=== PATIENT | male | born 1955 | race Caucasian/White ===

== ENCOUNTER 2018-07-31 14:14 | Emergency (ER) | payer OTHER ==
[~2018-07-31] VITALS: Ht 175.3 cm; Wt 82.0 kg
[~2018-07-31 14:14] MED LIST: MEDDOSEPAK PO; ULTRAM50 M1 PO
[2018-07-31] MEDS ORDERED: PRAVASTATIN20 MG PO (14:36)
[2018-07-31] MEDS ORDERED: ASPIRIN81 MG PO (14:36)
[2018-07-31] MEDS ORDERED: TRAMADOL HYDROC50 MG PO (15:04)
[2018-07-31] MEDS ORDERED: NAPROSYN500 MG PO (15:04)
[2018-07-31 15:10] VITALS: BP 139/89
== END 2018-07-31 15:10 | disposition home or self-care (01) | DRG 563 ==
LOC: ED 14:14
DX: S29.011A Strain of muscle and tendon of front wall of thorax, initial encounter (principal); E78.00 Pure hypercholesterolemia, unspecified; F17.210 Nicotine dependence, cigarettes, uncomplicated; X50.0XXA Overexertion from strenuous movement or load, initial encounter; Y93.89 Activity, other specified; Y92.009 Unspecified place in unspecified non-institutional (private) residence as the place of occurrence of the external cause

== ENCOUNTER 2020-03-14 12:23 | Emergency (ER) | payer OTHER ==
[~2020-03-14] VITALS: Ht 175.3 cm; Wt 82.0 kg
[~2020-03-14 12:23] MED LIST changes: +ASPIRIN81 MG PO; +NAPROSYN500 MG PO; +PRAVASTATIN20 MG PO; +TRAMADOL HYDROC50 MG PO
[2020-03-14] MEDS ORDERED: KEFLEX500 M1 PO (13:15)
[2020-03-14 13:24] VITALS: BP 133/79
== END 2020-03-14 13:23 | disposition home or self-care (01) | DRG 605 ==
LOC: ED 12:23
PROC: 0HQGXZZ Repair Left Hand Skin, External Approach (ICD-10-PCS; principal; 2020-03-14)
DX: S61.412A Laceration without foreign body of left hand, initial encounter (principal); F17.210 Nicotine dependence, cigarettes, uncomplicated; W26.0XXA Contact with knife, initial encounter; Y93.H2 Activity, gardening and landscaping; Y92.007 Garden or yard of unspecified non-institutional (private) residence as the place of occurrence of the external cause

== ENCOUNTER 2020-11-23 | Emergency (ER) | payer OTHER ==
[~2020-11-23] MED LIST changes: +KEFLEX500 M1 PO
[2020-11-23] MEDS ORDERED: TRAMADOL HYDROC50 M1 PO (15:58)
[2020-11-23] MEDS ORDERED: KEFLEX500 M1 PO (15:58)
== END 2020-11-23 15:50 | disposition home or self-care (01) | DRG 603 ==
DX: L03.113 Cellulitis of right upper limb (principal); E78.00 Pure hypercholesterolemia, unspecified; F17.210 Nicotine dependence, cigarettes, uncomplicated

== ENCOUNTER 2024-06-28 11:03 | Emergency (ER) | payer MEDICARE ==
[2024-06-28] VITALS (8 sets, daily range): BP systolic 107–128; BP diastolic 66–77
[~2024-06-28] VITALS: Ht 175.3 cm; Wt 81.6 kg
[~2024-06-28 11:03] MED LIST changes: +AMOX/K CLAV875 M1 PO; +ASPIRIN ADULT L81 M2 PO; +ATORVASTATIN CA20 MG PO; +BLOOD PRESSURE TOP; +CELEBREX200 MG PO; +COLCHICINE0.6 M2 PO; +LISINOPRIL2.5 MG PO; +MELOXICAM7.5 MG PO; +NEXIUM 24HR20 MG PO; +OMEPRAZOLE20 MG PO; +PEPCID20 MG PO; +PREDNISONE10 MG PO; +TERBINAFINE HY250 MG PO; +TRAMADOL HYDROC50 M1 PO; +ZYRTEC10 MG PO
[2024-06-28] MEDS ORDERED: ONDANSETRON HCl 4 MG/2 ML SDV IV ONE (11:45)
[2024-06-28] MEDS ORDERED: MORPHINE SULFATE 4 MG/ML VIAL IV ONE ×2 (11:45→12:55)
[2024-06-28 13:01] LABS: BASO% 0.4 % (0-3); EOS% 0.1 % (0-8); HEMATOCRIT 40.4 % (39.0-50.0); HEMOGLOBIN 13.4 g/dl (14.0-18.0); IMMATURE GRANULOCYTES 0.2 % (0.0-5.0); LYMPH% 9.3 % (15-41); MEAN CELL VOLUME 95.5 fL CALC (80.0-100.0); MEAN CORPUSCULAR HGB 31.7 pG CALC (26.0-32.0); MEAN CORPUSCULAR HGB CONC 33.2 g/dL CAL (32.0-36.0); NEUT# 7.72 thou/uL (1.82-7.42); RED BLOOD COUNT 4.23 mill/uL (4.70-6.10); RED CELL DISTRI WIDTH 13.7 % (11.5-15.5)
[2024-06-28 13:11] LABS: ALBUMIN 3.8 g/dL (3.2-5.0); BILIRUBIN, TOTAL 0.4 mg/dL (0.2-1.3); CREATININE 1.1 mg/dL (0.7-1.3); POTASSIUM 4.1 mmol/l (3.5-5.1); TOTAL PROTEIN 6.5 g/dL (6.3-8.2)
[2024-06-28] MEDS ORDERED: HYDROmorphone HCL 2 MG/AMP IV ONE (15:25)
[2024-06-28] MEDS ORDERED: TRAMADOL HYDROC50 M1 PO ×2 (16:21→16:42)
[2024-06-28] MEDS ORDERED: NAPROXEN500 MG PO ×2 (16:21→16:42)
[2024-06-28] MEDS ORDERED: METHOCARBAMOL500 MG PO ×2 (16:21→16:42)
[2024-06-28] MEDS ORDERED: ZOFRAN4 MG/TAB PO ×2 (16:21→16:42)
== END 2024-06-28 17:01 | disposition home or self-care (01) ==
LOC: ED 11:03
PROVIDERS: Family Medicine
DX: M25.552 Pain in left hip (principal); E78.00 Pure hypercholesterolemia, unspecified; F17.210 Nicotine dependence, cigarettes, uncomplicated